=== PATIENT | female | born 1995 | race Caucasian/White ===

== ENCOUNTER 2017-12-20 15:26 | Emergency (ER) | payer OTHER ==
[~2017-12-20] VITALS: Ht 165.1 cm; Wt 70.3 kg
[2017-12-20 15:47] VITALS: BP 136/86
--- NOTE | 2017-12-20 15:54 | NUR ---
PT AMBULATED TO CHAIR B
--- NOTE | 2017-12-20 16:21 | NUR ---
Dr. Medel evaluating patient.
--- NOTE | 2017-12-20 16:25 | NUR ---
22/F c/o throat pain x1 year. Pt states she has pain when she presses on the side of neck but no mass or lumps felt. Denies SOB. Denies cough. AOX4, clear speech. VSS.
[2017-12-20 16:36] VITALS: BP 136/86
--- NOTE | 2017-12-20 16:36 | NUR ---
Patient discharged with v/s stable. Written and verbal after care instructions given and explained. Patient verbalized understanding. Ambulatory with steady gait. All questions addressed prior to discharge. Advised to follow up with PMD.
== END 2017-12-20 16:36 | disposition home or self-care (01) ==
LOC: MED 15:26
DX: I88.9 Nonspecific lymphadenitis, unspecified (principal)
CPT/HCPCS: 99281